=== PATIENT | female | born 1990 | race Caucasian/White ===

== ENCOUNTER 2016-06-10 10:17 | Emergency (ER) | payer OTHER ==
[~2016-06-10] VITALS: Ht 177.8 cm; Wt 117.9 kg
--- NOTE | 2016-06-10 11:05 | ED MVC/FALL/TRAUMA COMPLAINT ---
History of Present Illness General Chief Complaint: Fall Stated Complaint: BODY PAIN,VÁSQUEZ,DIZZY S/P FALL DOWN STAIRS Source: patient, old records Exam Limitations: no limitations Vital Signs & Intake/Output Vital Signs & Intake/Output Vital Signs Date Time Temp Pulse Resp B/P Pulse O2 O2 Flow FiO2 Ox Delivery Rate 06/10 1044 98.1 86 18 127/84 98 Room Air Allergies Coded Allergies: No Known Allergies (06/10/16) Reconcile Medications Cyclobenzaprine HCl 5 MG TABLET 1 TAB PO TIDPRN PRN pain Triage Note: PT STATES THAT SHE TRIPPED ON SHOES AT HOME AND SLID DOWN ABOUT 20 STEPS , COMPLAINS OF PAIN ALL OVER, STATES THAT SHE HAS A LUMP TO THE BACK OF HER HEAD FROM IT HITTING THE STAIRS, R SHOULDER PAIN AND BACK PAIN, DENIES C-SPINE TENDERNESS ON LIGHT PALPATION. MOTRIN GIVEN AT TRIAGE Triage Nurses Notes Reviewed? yes Onset: Gradual Duration: hour(s): (2.5), constant Timing: recent history Severity: mild, moderate Severity Numbers: 4 Injuries/Fall Location: head Method of Injury: fall Loss of Consciousness: no loss of consciousness No Modifying Factors: none Associated Symptoms: DENIES : No Patient currently breastfeeds: No HPI: 26-year-old female with no medical history presents to emergency room complaining of a generalized headache and bumps to the back of her head after she states she tripped on a pair of shoes at 845 this morning causing her to fall down a flight of stairs on her back hitting her head. There is no loss of consciousness and she recalls the entire incident. She states that she's had bilateral shoulder soreness and left lower back pain. She denies any difficulty with ambulation. She denies any arm or lower extremity pain no numbness or tingling. There's been no change in her mental status. No nausea no vomiting no vision changes no neck pain no chest pain. She has not taken anything for symptoms or no modifying factors or associated symptoms otherwise. Patient is sitting on the stretcher on her phone appears in no apparent distress Past History Travel History Traveled to [place] past 21 day No Medical History Any Pertinent Medical History? 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 No Review of Systems Review of Systems Constitutional: Reports: see HPI. All Other Systems: Reviewed and Negative Comments Review of systems: See HPI, All other systems negative. Constitutional, no chills no fever, no malais HEENT: No visual changes no sore throat no congestion Cardiovascular: No chest pain , no palpitation Skin, no rashes, no change in skin Respiratory: No dyspnea no cough GI: No nausea no vomiting, no diarrhea : No dysuria Muscle skeletal: No joint pain, no joint swelling, back pain, no neck pain, Neurologic: No numbness no confusion, headache Psych: No stress Heme/endocrine: No bruising no bleeding Immunology: No lymphadenopathy Physical Exam Physical Exam General Appearance: well developed/nourished, alert, awake Comments: Well-developed well-nourished person in no acute distress Head/Face: Small right-sided hematoma, skin is intact no lacerations no maxillary/frontal sinus tenderness, no facial swelling no raccoon eyes no brock signs Eyes: PERRL, EOMI, no conjunctival injection. No nystagmus Ear:External auditory canal and Tympanic membranes clear, no erythema, no hemotympanum Nose: atraumatic.Normal inspection: No bleeding, no septal hematoma Throat: Moist mucous membranes.Pharynx normal. stridor/drooling or assymetry. No swelling or edema. Neck: Supple, no midline or paracervical tenderness FROM Back: Bilateral Paramusclar tenderness, no midline tendernes, no CVA tenderness. Full range of motion Cardiovascular: Regular rate and rhythms no murmurs rubs or gallops, normal JVP Respiratory: Chest nontender.There were no bony deformities, no asymmetry. No respiratory distress. Patient speaking in full complete sentences. Breath sounds clear to auscultation bilaterally: NO W/R/R Abdomen: Soft, nontender nondistended, no appreciable organomegaly. Normal bowel sounds Extremity: No edema, full range of motion of extremities, normal and equal pulses bilaterally, 5 out of 5 strength noted to bilateral upper and lower extremities Neuro: Alert oriented x3, motor sensory normal,There were no obvious focal neurologic abnormalities. Skin: No appreciable rash on exposed skin, skin is warm and dry. Psych: Mood and affect is normal, memory and judgment is normal. Core Measures ACS in differential dx? No Severe Sepsis Present: No Septic Shock Present: No Progress Differential Diagnosis: abd injury, C/T/L spine injury, ext injury, ICH, pelvis injury, pnemothorax, spinal cord injury Plan of Care: Orders Procedure Date/time Status URINE 06/10 1112 Complete Laboratory Tests 06/10/16 1119: Urine Test NEGATIVE Patient medicated for pain in triage. Flexeril 5 mg by mouth ordered Discussed with patient her CAT scan findings need for brain rest Tylenol Motrin prescription for Flexeril was provided answered all of her questions she feels comfortable plan cleared for discharge (NYDIA HANCOCK,LUIS E) Diagnostic Imaging: Viewed by Me: CT Scan. Discussed w/RAD: CT Scan. Radiology Impression: PATIENT: TRISTEN NORMAN PRESENT AGE: 26 PATIENT ACCOUNT NO: [id number] : 89 LOCATION: [facility] ORDERING PHYSICIAN: LUIS E HANCOCK SERVICE DATE: 06/10/16 EXAM TYPE: CAT - CT HEAD WO IV CONTRAST EXAMINATION: CT HEAD WITHOUT CONTRAST CLINICAL INFORMATION: 26-year-old female status post fall downstairs with head strike. Evaluate for intracranial hemorrhage. COMPARISON: None. TECHNIQUE: Contiguous axial imaging was performed from the skull base to vertex without intravenous administration of contrast. DLP: 600.71 mGy-cm. FINDINGS: A midline subgaleal hematoma in the superior parietal region measures 1.2 cm AP. The underlying calvarium is intact and there is no intracranial hemorrhage. The brain parenchyma has normal attenuation with well-preserved hoffman-white matter differentiation. No extra- axial fluid collection, focal mass effect or midline shift. The ventricles, sulci and basilar cisterns are normal. The visualized paranasal sinuses, mastoid air cells and middle ear cavities are clear. The examined orbits, globes and temporomandibular joints are unremarkable. IMPRESSION: 1. There is a midline subgaleal hematoma in the parietal region of the scalp. 2. No acute intracranial pathology. DICTATED BY: RUBI MANN MD DATE/TIME DICTATED:06/10/161303 DIRECTOR VOLUNTEER SERVICES:BRET DATE/TIME TRANSCRIBED:06/10/16 / 1304 CONFIDENTIAL, DO NOT COPY WITHOUT APPROPRIATE AUTHORIZATION. <Electronically signed in Other Vendor System> SIGNED BY: RUBI MANN MD 06/10/16 1312 Departure Departure Disposition: HOME OR SELF CARE Condition: Stable Clinical Impression Primary Impression: Minor head injury without loss of consciousness Secondary Impressions: Fall, Muscle strain Referrals: PATIENT HAS NO PRIMARY CARE DR (PCP/Family) Additional Instructions: Rest, interchange ice and heat. Tylenol Motrin every 4-6 hours. Flexeril as directed follow up with your primary care physician's week return with any concerns. Departure Forms: Customer Survey General Discharge Information Prescriptions: Current Visit Scripts Cyclobenzaprine HCl 1 TAB PO TIDPRN PRN pain #12 TAB
[2016-06-10] MEDS ORDERED: CYCLOBENZAPRINE5 M2 PO (11:57)
--- NOTE | 2016-06-10 13:12 | CT SCAN REPORT ---
EXAMINATION: CT HEAD WITHOUT CONTRAST CLINICAL INFORMATION: 26-year-old female status post fall downstairs with head strike. Evaluate for intracranial hemorrhage. COMPARISON: None. TECHNIQUE: Contiguous axial imaging was performed from the skull base to vertex without intravenous administration of contrast. DLP: 600.71 mGy-cm. FINDINGS: A midline subgaleal hematoma in the superior parietal region measures 1.2 cm AP. The underlying calvarium is intact and there is no intracranial hemorrhage. The brain parenchyma has normal attenuation with well-preserved hoffman-white matter differentiation. No extra-axial fluid collection, focal mass effect or midline shift. The ventricles, sulci and basilar cisterns are normal. The visualized paranasal sinuses, mastoid air cells and middle ear cavities are clear. The examined orbits, globes and temporomandibular joints are unremarkable. IMPRESSION: 1. There is a midline subgaleal hematoma in the parietal region of the scalp. 2. No acute intracranial pathology.
[2016-06-10 13:26] VITALS: BP 121/76
== END 2016-06-10 13:27 ==
LOC: ERH 10:17
DX: S09.90XA Unspecified injury of head, initial encounter (principal); M25.511 Pain in right shoulder; M25.512 Pain in left shoulder; M54.5 Low back pain; W18.09XA Striking against other object with subsequent fall, initial encounter; W10.9XXA Fall (on) (from) unspecified stairs and steps, initial encounter
CPT/HCPCS: 81025

== ENCOUNTER 2017-10-27 21:41 | Emergency (ER) | payer SELFPAY ==
[~2017-10-27 21:41] MED LIST: CYCLOBENZAPRINE5 M2 PO; MOBIC15 M1 PO; ROBAFEN CF LIQ118 ML PO; ZOFRAN ODT4 M1 SL
[2017-10-27 22:51] VITALS: BP 136/94
--- NOTE | 2017-10-27 22:56 | ED THROAT/DENTAL COMPLAINT ---
History of Present Illness General Chief Complaint: Sore Throat, Dental Pain Stated Complaint: SORE THROAT, FEVER, EARS HURT Source: patient Exam Limitations: no limitations Vital Signs & Intake/Output Vital Signs & Intake/Output Vital Signs Date Time Temp Pulse Resp B/P B/P Pulse O2 O2 Flow FiO2 Mean Ox Delivery Rate 10/27 2251 98.2 101 16 136/94 97 Room Air 10/27 2145 97.7 106 16 143/109 97 Room Air ED Intake and Output 10/28 0000 10/27 1200 Intake Total 0 Output Total Balance 0 Intake, Oral 0 Allergies Coded Allergies: No Known Allergies (06/10/16) Reconcile Medications Amoxicillin/Potassium Clav (Augmentin 875-125 Tablet) 875 MG-125 MG TABLET 1 TAB PO BID STREPT PHARYNGITIS Guaifenesin/D-Methorphan Hb/PE (Robafen Cf Liquid) 100 MG-10 MG-5 MG/5 ML LIQUID 5 ML PO BID PRN cough [MAGIC MOUTHWASH] 10 ML PO TID PRN SORE THROAT EQUAL PARTS 1:1:1 SWISH AND SWALLOW Meloxicam (Mobic) 15 MG TABLET 1 TAB PO DAILY PRN pain Methylprednisolone. (Medrol) 4 MG TAB.DS.PK 1 DP PO AD INFLAMMATION 6 on day 1 then reduce by one tablet daily until gone Ondansetron (Zofran Odt) 4 MG TAB.RAPDIS 1 TAB SL TID PRN nausea Triage Note: PT TO ED WITH C/O SORE THROAT AND BILATERAL EAR PAIN X 2 DAYS. ALSO C/O FEVERS AND GEN BODY ACHES. Triage Nurses Notes Reviewed? yes Onset: Gradual Duration: constant Timing: recent history Severity: moderate Severity Numbers: 5 : No Patient currently breastfeeds: No HPI: Patient is 27-year-old female who presents emergency room with a 24-hour onset of sore throat pain ear pain denies weakness of fatigue Patient can tolerate by mouth Denies any similar sick contacts Denies any cough chest pain and arm pain and jaw pain or rash (Quinten Tineo) Past History Travel History Traveled to [place] past 21 day No Medical History Any Pertinent Medical History? 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 No (Quinten Tineo) Review of Systems Review of Systems Constitutional: Reports: see HPI. EENTM: Reports: see HPI, throat pain. Respiratory: Reports: no symptoms. Cardiovascular: Reports: no symptoms. GI: Reports: no symptoms. Genitourinary: Reports: no symptoms. Musculoskeletal: Reports: no symptoms. Skin: Reports: no symptoms. Neurological/Psychological: Reports: no symptoms. Hematologic/Endocrine: Reports: no symptoms. Immunologic/Allergic: Reports: no symptoms. All Other Systems: Reviewed and Negative (Quinten Tineo) Physical Exam Physical Exam General Appearance: no apparent distress, alert, comfortable Head: atraumatic Eyes: Bilateral: normal appearance. Ears: Bilateral: canal normal, Tympanic normal. Nose: normal inspection Mouth/Throat: pharynx swelling, pharynx tenderness, tonsillar exudate Neck: normal inspection, supple, full range of motion Cardiovascular/Respiratory: normal breath sounds, normal peripheral pulses Neurologic/Psych: no motor/sensory deficits, awake, alert Skin: intact, normal color Core Measures ACS in differential dx? No Sepsis Present: No Sepsis Focused Exam Completed? No (Quinten Tineo) Progress Differential Diagnosis: carious tooth, epiglottitis, Ludwigs angina, meningitis, odontogenic abscess, ziyad-tonsillar abscess, pharyngeal for. body, stomatitis/ gingivitis, strep pharyngitis Plan of Care: Orders Procedure Date/time Status THROAT CULTURE W/QUICK STREP 10/27 2142 Complete Patient was afebrile noted positive strep pharyngitis, I reviewed all results with patient. Patient to tolerate by mouth upon discharge (Quinten Tineo) Departure Departure Disposition: HOME OR SELF CARE Condition: Stable Clinical Impression Primary Impression: Streptococcal pharyngitis Referrals: Patient Has No Primary Care Dr (PCP/Family) Additional Instructions: As discussed in [id number] ibuprofen for pain and inflammation begin the prescription of Augmentin for the full course, Medrol Dosepak for inflammation and Magic mouthwash for sore throat, prescriptions waiting a [facility]. If symptoms worsen or he develop new concerning symptom return to emergency room. If no better in 3 days follow up with your doctor Departure Forms: Customer Survey General Discharge Information Prescriptions: Current Visit Scripts Amoxicillin/Potassium Clav (Augmentin 875-125 Tablet) 1 TAB PO BID #20 TAB Methylprednisolone. (Medrol) 1 DP PO AD #1 DP 6 on day 1 then reduce by one tablet daily until gone [MAGIC MOUTHWASH] 10 ML PO TID PRN SORE THROAT #100 ML EQUAL PARTS 1:1:1 SWISH AND SWALLOW (Tyrese HANCOCK,Quinten) PA/PUBLIC HEALTH ADVISOR Co-Sign Statement Statement: ED Attending supervision documentation- [] I saw and evaluated the patient. I have also reviewed all the pertinent lab results and diagnostic results. I agree with the findings and the plan of care as documented in the PA's/PUBLIC HEALTH ADVISOR's documentation. x I have reviewed the ED Record and agree with the PA's/PUBLIC HEALTH ADVISOR's documentation. [] Additions or exceptions (if any) to the PAs/PUBLIC HEALTH ADVISOR's note and plan are summarized below: [] (Urban RUIZ,Jens Watson)
[2017-10-27] MEDS ORDERED: AUGMENTIN 875-1 EACH PO (23:02)
[2017-10-27] MEDS ORDERED: MEDROL4 M2 PO (23:02)
[2017-10-27] MEDS ORDERED: MAGIC MOUTHWASH PO (23:02)
== END 2017-10-27 23:17 ==
LOC: ERH 21:41
DX: J02.0 Streptococcal pharyngitis (principal)